=== PATIENT | male | born 1940 | race Caucasian/White ===

== ENCOUNTER 2017-12-02 09:19 | Outpatient (CLI) | payer MEDICARE, BC ==
[2017-12-02] MEDS ORDERED: Iopamidol 370 76% 100 ML VIAL ONE (11:12)
--- NOTE | 2017-12-02 12:57 | CT ---
CT OF CHEST AND ABDOMEN AND PELVIS PERFORMED WITH INTRAVENOUS CONTRAST ENHANCEMENT: HISTORY: Carcinoid tumor. COMPARISON: A 08/11/13 examination. FINDINGS: A 4-5 mm pleural-based nodule in the right lower lobe is stable. There is no infiltrative process de monstrated. There is no significant mediastinal or hilar lymphadenopathy noted. No significant axil arvin adenopathy demonstrated. There is some questionable slight wall thickening to the esophagus. This could be on the basis of re flux. Consideration for endoscopy is suggested as a clinical consideration. CT OF ABDOMEN PERFORMED WITH INTRAVENOUS CONTRAST ENHANCEMENT: The liver is normal in appearance. A peripherally enhancing splenic mass is most likely a hemangioma . This is felt to be relatively stable as compared to the prior exam. The pancreas region is unrema rkable and the gallbladder region also appears normal. The right and left adrenal glands and right and left kidneys are normal in size. There is a stable a ppearance to the mid pole right renal cyst. The lower pole cyst is slightly increased in size as com pared to the prior exam increasing from 2.4 to 2.9 cm but still has cyst features. The retrocrural lymph node noted on the previous examination has slightly increased in size from 1.1 to 1.5 cm and a second retrocrural node that is inferior to this is also increased in size measuring 1.6 as compared to 1.1 cm. There is extensive periaortic and aortocaval lymphadenopathy. These nod es have increased. The best example is on axial image 63 where a node just lateral to the left of th e superior mesenteric artery has increased from 3.1 to 4.6 cm. A node just to the right of the aorta on axial image 68 is increased from 3.9 to 4.6 cm. The mesenteric mass which showed some calcification is smaller than on the previous study. It measur ed approximately 4.4 cm in AP dimension on the prior examination and today on axial image 74 measures 2.4 cm. Just to the right and slightly anterior to this, there has been interval increase in the si ze of some of the adjacent mesenteric nodes, now with one node measures as much as 2 cm in AP dimensi on. This does represent an increase in size of the lymphadenopathy. CT OF PELVIS PERFORMED WITH CONTRAST ENHANCEMENT: No evidence of any significant pelvic lymphadenopathy or mass. IMPRESSION: 1. Interval increase in adenopathy, specifically the retrocrural, periaortic, aortocaval, and mesent dawood adenopathy has increased in size. 2. The partially calcified mesenteric mass has decreased in size. 3. 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 4. Suggestion of some esophageal wall thickening which could be on the basis of reflex. Considerati on for endoscopy as clinically indicated. POS: [facility]
== END 2017-12-02 09:20 | disposition home or self-care (01) ==
LOC: CT 09:19
PROVIDERS: ATTEND Internal Medicine Medical Oncology
DX: C7A.098 Malignant carcinoid tumors of other sites (principal)
CPT/HCPCS: 71260; 74177

== ENCOUNTER 2018-03-12 08:24 | Outpatient (CLI) | payer MEDICARE, BC ==
--- NOTE | 2018-03-12 10:41 | CT ---
CT CHEST WITH IV CONTRAST CT ABDOMEN AND PELVIS WITH IV AND ORAL CONTRAST: HISTORY: Carcinoid tumor with metastatic disease. Restaging. COMPARISON: 12/02/17. FINDINGS: Tiny peripheral nodule at the right posterolateral lung base is stable. There is mild atelectasis at each lung base. No enlarged lymph nodes are evident within the mediastinum. There is calcification in the arterial structures. Small hyperdense stone is present within the dependent portion of the gallbladder lumen. The partially calcified masses within the right central mesentery now measure 2.9 cm (previously 2.4) and 2.8 cm (previously 2.0 cm). Bulky multilobulated retroperitoneal adenopathy is again demonstrat ed. To compare directly to the previous exam, measurements are made at the same location as much as possible based on the previous study. Left paraaortic 5.1 cm (previously 4.6 cm). Right retrocaval 5.0 cm (previously 4.7 cm). There are degenerative changes and postoperative changes lumbar spine. Diverticula arise from the co disha without adjacent inflammation. IMPRESSION: 1. Slight interval enlargement of the central mesenteric masses and bulky retroperitoneal adenopathy , as detailed above. 2. Cholelithiasis. 3. Atherosclerosis. 4. Diverticulosis. POS: [facility]
[2018-03-12] MEDS ORDERED: Iopamidol 370 76% 100 ML VIAL ONE (10:44)
== END 2018-03-12 08:25 | disposition home or self-care (01) ==
LOC: CT 08:24
PROVIDERS: ATTEND Internal Medicine Medical Oncology
DX: C7A.019 Malignant carcinoid tumor of the small intestine, unspecified portion (principal); K80.20 Calculus of gallbladder without cholecystitis without obstruction; I70.90 Unspecified atherosclerosis; K57.90 Diverticulosis of intestine, part unspecified, without perforation or abscess without bleeding; R59.0 Localized enlarged lymph nodes
CPT/HCPCS: 71260; 74177; 82565

== ENCOUNTER 2023-02-07 23:43 | Emergency (ER) | payer MEDICARE, BC ==
[2023-02-08 00:46] LABS: ALT (SGPT) 22 U/L (8-55); AST (SGOT) 32 U/L (5-34); Albumin 3.5 g/dL (3.4-4.8); Alkaline Phosphatase 92 U/L (40-110); Anion Gap 16 mmol/L (10-20); BUN (Urea Nitrogen) 23 mg/dL (8.4-25.7); Calc. Creatinine Clearance 0 mL/min (70-130); Calcium 9.5 mg/dL (7.8-10.44); Carbon Dioxide 25 mmol/L (23-31); Chloride 96 mmol/L (98-107); Estimated GFR 73; Globulin 4.4 g/dL (2.4-3.5); Glucose 125 mg/dL (83-110); Potassium 3.6 mmol/L (3.5-5.1); Protein, Total 7.9 g/dL (5.8-8.1); Sodium 133 mmol/L (136-145)
[2023-02-08 01:29] LABS: Bilirubin Negative (Negative); Blood, Urine Negative (Negative); Clarity Clear (Clear); Glucose, Urine (Dipstick) Normal (Negative); Ketone, Urine Negative (Negative); Leukocyte Negative Leu/uL (Negative); Nitrite Negative (Negative); Protein, Urine (Dipstick) Negative (Neg-Trace); Urobilinogen Normal mg/dL (Less than 2)
[2023-02-08] MEDS ORDERED: Fleet Saline Enema 133 ML BOT PR SCH (02:30)
== END 2023-02-08 03:05 | disposition home or self-care (01) ==
LOC: ERS 23:43
DX: K59.00 Constipation, unspecified (principal); I10 Essential (primary) hypertension
CPT/HCPCS: 36415; 74176; 80053; 81003